=== PATIENT | male | born 1995 | race African-American/Black ===

== ENCOUNTER 2016-12-25 03:00 | Emergency (ER) | payer OTHER ==
[2016-12-25 06:30] VITALS: BP 121/75
== END 2016-12-25 07:27 | disposition left against medical advice (07) ==
LOC: ER 03:00
DX: Z53.21 Procedure and treatment not carried out due to patient leaving prior to being seen by health care provider (principal)

== ENCOUNTER 2016-12-26 23:12 | Emergency (ER) | payer OTHER ==
[~2016-12-26] VITALS: Ht 185.4 cm; Wt 74.0 kg
[2016-12-27] MEDS ORDERED: IBUPROFEN 600MG TABLET PO ONE (01:00)
[2016-12-27 01:30] VITALS: BP 136/88
== END 2016-12-27 01:38 | disposition home or self-care (01) ==
LOC: ER 23:18
DX: J02.9 Acute pharyngitis, unspecified (principal); R07.0 Pain in throat; H92.03 Otalgia, bilateral; F17.200 Nicotine dependence, unspecified, uncomplicated; R50.9 Fever, unspecified
CPT/HCPCS: 99283